=== PATIENT | male | born 1975 | race Caucasian/White ===

== ENCOUNTER → 2019-12-19 08:03 | Outpatient (BNVA) | payer OTHER, SELFPAY | PROVIDERS: Family Provider Family Medicine; PCP Family Medicine; Visit Provider Nurse Practitioner | DX: F41.0 Panic disorder [episodic paroxysmal anxiety] (principal); F41.1 Generalized anxiety disorder | CPT/HCPCS: 99214 ==

== ENCOUNTER → 2020-03-11 07:44 | Outpatient (BNVA) | payer OTHER, SELFPAY | PROVIDERS: Family Provider Family Medicine; PCP Family Medicine; Visit Provider Nurse Practitioner | DX: F41.1 Generalized anxiety disorder (principal); F41.0 Panic disorder [episodic paroxysmal anxiety] | CPT/HCPCS: 99213 ==

== ENCOUNTER → 2020-04-23 11:39 | Outpatient (BNVA) | payer OTHER, SELFPAY | PROVIDERS: Family Provider Family Medicine; PCP Nurse Practitioner Family; Referring Provider Nurse Practitioner Family; Visit Provider Specialist | DX: G56.23 Lesion of ulnar nerve, bilateral upper limbs (principal); R20.0 Anesthesia of skin; R20.2 Paresthesia of skin; M79.601 Pain in right arm; M79.602 Pain in left arm | CPT/HCPCS: 95910 ==

== ENCOUNTER → 2020-06-18 08:20 | Outpatient (BNVA) | payer OTHER, SELFPAY | PROVIDERS: Family Provider Family Medicine; PCP Nurse Practitioner Family; Visit Provider Nurse Practitioner | DX: F41.1 Generalized anxiety disorder (principal); F41.0 Panic disorder [episodic paroxysmal anxiety] | CPT/HCPCS: 99213 ==

== ENCOUNTER → 2020-09-11 07:59 | Outpatient (BNVA) | payer OTHER, SELFPAY | PROVIDERS: Family Provider Family Medicine; PCP Nurse Practitioner Family; Visit Provider Nurse Practitioner | DX: F41.1 Generalized anxiety disorder (principal); F41.0 Panic disorder [episodic paroxysmal anxiety] | CPT/HCPCS: 99213 ==

== ENCOUNTER → 2020-12-04 07:40 | Outpatient (BNVA) | payer OTHER, SELFPAY | PROVIDERS: PCP Nurse Practitioner Family; Visit Provider Nurse Practitioner | DX: F41.1 Generalized anxiety disorder (principal); F41.0 Panic disorder [episodic paroxysmal anxiety] | CPT/HCPCS: 99214 ==

== ENCOUNTER 2020-12-23 09:14 | Outpatient (CLI) | payer OTHER, SELFPAY ==
--- NOTE | 2020-12-23 10:00 | USCV_ITS ---
Abimael North Age: 45 Gender: M : 1975 Exam Date: 12/23/2020 09:36 Ordering Phys: Barry Yu M.D ([email or web address]) Technologist: Rosio Monge Exam Location: [facility] [place] Indication: PALPITATIONS BP: 116 / 76 HR: 77 Rhythm: Sinus Technical Quality: Good MEASUREMENTS (Male / Female) Normal Values 2D ECHO LV Diastolic Diameter PLAX 4.3 cm 4.2 - 5.9 / 3.9 - 5.3 cm LV Systolic Diameter PLAX 2.6 cm LV Chamber Size 5.1 cm IVS Diastolic Thickness 1.0 cm 0.6 - 1.0 / 0.6 - 0.9 cm IVS Systolic Thickness 1.5 cm LVPW Diastolic Thickness 1.1 cm 0.6 - 1.0 / 0.6 - 0.9 cm LVPW Systolic Thickness 1.6 cm RV Chamber Size 3.8 cm LVOT Diameter 2.0 cm LV Ejection Fraction 2D Teich 70.8 % LA Diameter 3.4 cm LA Width 3.2 cm LA Height 5.2 cm RA Width 4.2 cm RA Height 4.8 cm M-MODE LV Diastolic Diameter MM 5.6 cm 4.2 - 5.9 / 3.9 - 5.3 cm LV Systolic Diameter MM 3.2 cm LV Ejection Fraction MM Teich 74.5 % IVS Diastolic Thickness MM 1.0 cm 0.6 - 1.0 / 0.6 - 0.9 cm IVS Systolic Thickness MM 1.8 cm LVPW Diastolic Thickness MM 0.8 cm 0.6 - 1.0 / 0.6 - 0.9 cm LVPW Systolic Thickness MM 1.2 cm RV Diastolic Diameter MM 2.0 cm Aortic Annulus Diameter 3.1 cm LA Ao Ratio MM 1.2 MV E Point Septal Separation 0.1 cm DOPPLER AV Peak Velocity 126.0 cm/s LVOT Peak Velocity 109.0 cm/s AV Area Cont Eq vti 2.5 cm squared AV Area Cont Eq pk 2.7 cm squared MV E' Velocity 11.0 cm/s TR Peak Velocity 205.0 cm/s TR Peak Gradient 16.8 mmHg TV Peak E Velocity 71.0 cm/s Right Atrial Pressure 3.0 mmHg Pulmonary Artery Systolic Pressu 19.8 mmHg PV Peak Velocity 66.0 cm/s FINDINGS Left Ventricle Normal left ventricular size. LV systolic function is normal with LVEF of 55-60%. No regional wall motion abnormalities. Normal diastolic filling pattern. Right Ventricle The right ventricle is normal in size and function. Right Atrium The right atrium is normal in size. Left Atrium The left atrium is normal in size. Mitral Valve Structurally normal mitral valve without significant stenosis or prolapse. There is no mitral regurgitation. Aortic Valve Structurally normal aortic valve without significant sclerosis or stenosis. There is no aortic regurgitation. Tricuspid Valve Structurally normal tricuspid valve without significant stenosis or regurgitation. Insufficient TR jet to calculate RVSP Pulmonic Valve Structurally normal pulmonic valve without significant stenosis. There is no pulmonic regurgitation. Pericardium Normal pericardium without effusion. Aorta Normal ascending aorta dimension. CONCLUSIONS Normal LV systolic function with EF of 55-60% Diastolic function is normal No significant valvular heart disease No comparison studies are available Barry Yu MD (Electronically Signed) Final Date: 30 December 2020 11:14 S
== END 2020-12-23 09:15 | disposition home or self-care (01) ==
LOC: RAD 09:18
PROVIDERS: PCP Nurse Practitioner Family; Visit Provider Internal Medicine
DX: R00.2 Palpitations (principal)
CPT/HCPCS: 93306

== ENCOUNTER → 2021-02-09 08:20 | Outpatient (BNVA) | payer OTHER, SELFPAY | PROVIDERS: PCP Nurse Practitioner Family; Visit Provider Nurse Practitioner | DX: F41.1 Generalized anxiety disorder (principal); F41.0 Panic disorder [episodic paroxysmal anxiety] | CPT/HCPCS: 99214 ==

== ENCOUNTER → 2021-12-04 09:15 | Outpatient (BNVA) | payer OTHER, SELFPAY | PROVIDERS: PCP Nurse Practitioner Family; Visit Provider Surgery | DX: Z20.822 Contact with and (suspected) exposure to COVID-19 (principal) | CPT/HCPCS: 87635 ==

== ENCOUNTER 2021-12-09 07:56 | Day surgery (SDC) | payer OTHER, SELFPAY ==
[2021-12-07 09:07] VITALS: BMI 32.8
--- NOTE | 2021-12-09 08:21 | ANES.PREANE2 ---
Pre-Anesthetic Assessment Height/Weight: Height 1.8 m Weight 106.594 kg Preop Diagnosis: diagnostic Operation Date: 12/09/21 09:30 Proposed Procedures p Colonoscopy 21879/k62.89(Not Applicable) - Jw Bassett MD Was Beta Perry taken within 24 hours: N/A Was Clonidine taken within 24 hours: N/A Social No alcohol and No tobacco Exam alert, oriented x 3, clear to auscultation bilaterally and regular rate & rhythm Airway Submandibular: within normal limits Cervical ROM: within normal limits Dentition: full History/ROS No significant complaints Pulmonary None reported CV/HEM None reported METS > 4 None reported Hepatic None reported GI Rectal pain Metabolic None reported Musc/skel None reported Neuropsych Anxiety Panic disorder ADHD Anesthetic Plan ASA status: 2 Anesthesia: Anesthesia Evaluation and General Other: I discussed with the patient risks, goals, and benefits of MAC and general anesthesia. We discussed spectrum of MAC anesthesia including conversion to general as well as possibility of recall of intraoperative stimuli including discomfort/pain. Patient agrees to proceed with MAC. Other Pertinent Information Very anxioius today. Takes diazepam nightly. Medications/Allergies Home Medications Medication Instructions Recorded Confirmed Last Taken Type multivitamin 1 tab PO DAILY 12/19/19 12/07/21 Unknown History lisinopril 20 mg tablet 30 mg PO DAILY tab 04/23/20 12/07/21 Unknown History omega-3 fatty acids-fish oil 360 1 cap PO DAILY 02/09/21 12/07/21 Unknown History mg-1,200 mg capsule (Fish Oil) rosuvastatin 5 mg tablet (Crestor) 5 mg PO DAILY 08/05/21 12/07/21 Unknown History diazepam 5 mg tablet (Valium) See Rx Instructions PO .QHS PRN 10/28/21 12/07/21 Unknown Rx #45 tab sertraline 100 mg tablet (Zoloft) 100 mg PO DAILY #30 tab 10/28/21 12/07/21 Unknown Rx lactulose 10 gram/15 mL oral 10 g (15 mL) PO BID 30 Days #900 ml 11/17/21 12/07/21 Unknown Rx solution lidocaine 3 % topical cream 1 applic TOPICAL BID PRN #28.35 g 11/17/21 12/07/21 Unknown Rx melatonin 5 mg tablet 2.5 mg PO DAILY 12/07/21 12/07/21 Unknown History Allergies Allergy/AdvReac Type Severity Reaction Status Date / Time doxycycline Allergy Unknown Verified 12/07/21 09:04 [facility] Anesthesia Medical History Attention-deficit hyperactivity disorder, predominantly inattentive type Generalized anxiety disorder Panic disorder [episodic paroxysmal anxiety] Psychiatric care Surgical History Hx of appendectomy 1992 Family History Father Hypertension CAD (coronary artery disease) Social History Smoking and tobacco status: never smoked Alcohol intake: never Data Anesthesia Cardiac Studies: Echocardiogram Ultrasound 12/23/20 Cardiac Event Monitor 11/04/20
[2021-12-09 08:29] VITALS: BP 113/86; PULSE 95; RESP 18; TEMP 36.4; O2SAT 97
[2021-12-09] MEDS: sodium chloride 0.9% 1,000 ML 30 ML IV (08:34)
--- NOTE | 2021-12-09 09:24 | W.PM.OPSFHP ---
Same Day Surgery H&P Indication for Procedure/HPI DATE OF PROCEDURE: December 09, 2021 CHIEF COMPLAINT/INDICATIONFOR SURGICAL PROCEDURE: Colonoscopy PREOP DIAGNOSIS: diagnostic PLANNED PROCEDURE: Operation Date: 12/09/21 09:30 Proposed Procedures p Colonoscopy 63839/k62.89(Not Applicable) - Jw Bassett MD Medications/Allergies* Home Medications Medication Instructions Recorded Confirmed Type multivitamin 1 tab PO DAILY 12/19/19 12/07/21 History lisinopril 20 mg tablet 30 mg PO DAILY tab 04/23/20 12/07/21 History omega-3 fatty acids-fish oil 360 1 cap PO DAILY 02/09/21 12/07/21 History mg-1,200 mg capsule (Fish Oil) rosuvastatin 5 mg tablet (Crestor) 5 mg PO DAILY 08/05/21 12/07/21 History melatonin 5 mg tablet 2.5 mg PO DAILY 12/07/21 12/07/21 History Allergies/Adverse Reactions Allergy/AdvReac Type Severity Reaction Status Date / Time doxycycline Allergy Unknown Verified 12/07/21 09:04 Current Medications: Generic Name Dose Route Start Last Admin Trade Name Freq PRN Reason Stop Dose Admin Sodium Chloride 1,000 mls @ 30 mls/hr 12/09/21 08:15 12/09/21 08:34 Sodium Chloride 0.9% IV 12/10/21 08:14 30 mls/hr .Q24H ELDA Administration Pertinent History/Comorbid Conditions* Medical History (Updated 08/17/21 @ 16:00 by Rosana Davenport) Attention-deficit hyperactivity disorder, predominantly inattentive type Generalized anxiety disorder Panic disorder [episodic paroxysmal anxiety] Psychiatric care Surgical History (Updated 11/17/21 @ 13:39 by Jw Bassett MD) Hx of appendectomy 1992 Family History (Updated 11/04/20 @ 13:28 by Stephy Lopez LPN) CAD (coronary artery disease) Father Hypertension Father Social History Smoking and tobacco status: never smoked Alcohol intake: never Pertinent Exam Findings alert, oriented x 3 and regular rate & rhythm Recommendations Surgery/Procedure today Coding Level of Care Code Acute Hospice Nurse Practitioner for [facility]
[2021-12-09 09:56] VITALS: BP 82/64; PULSE 81; RESP 16; TEMP 36.3; O2SAT 94
[2021-12-09 10:00] VITALS: BP 93/64
[2021-12-09 10:10] VITALS: BP 112/70; PULSE 75; RESP 18; O2SAT 94
--- NOTE | 2021-12-09 16:14 | ANE.PACU2 ---
Inpatient post-anesthesia follow up: Airway intact: Yes Vital signs: Temperature 97.4 F Pulse Rate 75 Respiratory Rate 18 Blood Pressure 112/70 Pulse Oximetry 94 Oxygen Delivery Me thod Room Air Oxygen Flow Rate 3 Fraction of Inspir ed Oxygen Hydration adequate: Yes Nausea and vomiting: No Pain level: 1 Mental status: Baseline
== END 2021-12-09 10:35 | disposition home or self-care (01) ==
PROVIDERS: PCP Nurse Practitioner Family; Visit Provider Surgery
PROC: 0DJD8ZZ Inspection of Lower Intestinal Tract, Via Natural or Artificial Opening Endoscopic (ICD-10-PCS; CPT 45378; principal; 2021-12-09 09:30)
DX: K62.89 Other specified diseases of anus and rectum (principal); K57.30 Diverticulosis of large intestine without perforation or abscess without bleeding; D12.5 Benign neoplasm of sigmoid colon; K64.8 Other hemorrhoids; K60.2 Anal fissure, unspecified; F41.9 Anxiety disorder, unspecified; F41.0 Panic disorder [episodic paroxysmal anxiety]; F90.9 Attention-deficit hyperactivity disorder, unspecified type; Z82.49 Family history of ischemic heart disease and other diseases of the circulatory system
CPT/HCPCS: 45380; 88305; J2704; J7030

== ENCOUNTER → 2025-08-13 10:42 | Outpatient (BNVA) | payer OTHER, SELFPAY | PROVIDERS: PCP Family Medicine; Visit Provider Family Medicine | DX: I10 Essential (primary) hypertension (principal) | CPT/HCPCS: 80053; 80061; 84439; 84443; 85025 ==